=== PATIENT | male | born 1975 | race Caucasian/White ===

== ENCOUNTER 2016-10-26 10:10 | Emergency (ER) | payer BC ==
[~2016-10-26] VITALS: Ht 182.9 cm; Wt 65.0 kg
[2016-10-26 10:19] VITALS: TEMP 37.1; Ht 182.9 cm; Wt 65.0 kg
[2016-10-26] MEDS ORDERED: TRIA1SPR10 NAE (10:58)
[2016-10-26] MEDS ORDERED: PSEU30TA20 PO (10:58)
[2016-10-26] MEDS ORDERED: MAGNTAB PO (10:58)
[2016-10-26] MEDS ORDERED: HYDR-5688 PO (11:58)
[2016-10-26] MEDS ORDERED: META1TAB22 PO (11:58)
[2016-10-26 12:22] VITALS: BP 111/73; PULSE 80; O2SAT 96
--- NOTE | 2016-10-26 21:25 | EMERGENCY ROOM VISIT NOTE ---
History First contact with patient: 11:20 Chief Complaint: BACK PAIN Stated Complaint: LOWER BACK PAIN History of Present Illness The patient is a pleasant 41 year old male who presents to the Emergency Room with complaints of lower back pain. The patient reports that he has had back discomfort for the past 2 days after attempting to open a window. The patient reports that he bent over and used both arms to raise the window when he noticed tightness in the back. The patient reports that the pain is sometimes so bad that he cannot get up from a supine position. The patient reports that this has happened to him before in the past. 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 He also reports that he has had problems with his neck in the past as well, but currently denies any neck discomfort. He has not noticed any pain radiating into the lower extremities or buttocks. He denies bladder/bowel difficulties, saddle anesthesias or lower extremity weakness. He denies any other recent infections , fevers, abdominal pain, urinary symptoms, constipation or diarrhea. His pain is worsened with movement. He currently rates his discomfort a 7 out of 10 on my exam. Review of Systems 10 system review was performed and was negative except for pertinent positives and negatives as indicated in history of present illness Past Medical/Surgical History Medical Problems: (1) No significant past medical history Surgical Problems: (1) No history of previous surgery Family History FH: hypertension FH: kidney disease Social History Smoking Status: Former Smoker Alcohol Use: occasionally Marital Status: Housing Status: lives with family Occupation Status: employed Current/Historical Medications Scheduled Magnesium Salicylate (Backache Relief Extra Str), 2 TAB PO Q4H Metaxalone (Skelaxin), 800 MG PO QID Pseudoephedrine (Sudafed), 30 MG PO HS Triamcinolone Acetonide (Nasal (Nasal Allergy 24 Hour), 1 SPRAY KINA DAILY Scheduled PRN Hydrocodone/Acetaminophen 5MG/325MG ([place] 5MG/325MG), 1-2 TABLET PO Q4H PRN for Pain Allergies Coded Allergies: No Known Allergies (Unverified , 10/26/16) Physical Exam Vital Signs Date Time Temp Pulse Resp B/P (MAP) Pulse Ox O2 Delivery O2 Flow Rate FiO2 10/26/16 12:22 80 15 111/73 96 10/26/16 11:07 75 16 127/78 98 Room Air 10/26/16 10:19 37.1 72 18 120/73 98 Room Air Pain Rating (0-10): 4.0 Physical Exam CONSTITUTIONAL: Healthy and well nourished. Alert and oriented X 3 with positive affect. Patient appears in mild discomfort, and is laying in a supine position. HEENT: Normocephalic, atraumatic. Pupils equal, round and reactive. No subconjunctival hemorrhage or scleral icterus. NECK: Full active range of motion without discomfort. RESPIRATORY: Clear to auscultation bilaterally with no wheezing, crackles, rhonchi or stridor. CARDIOVASCULAR: Regular rate and rhythm with no murmurs, rubs or gallops. GASTROINTESTINAL: Bowel sounds present in all quadrants. Soft and nontender to palpation. MUSCULOSKELETAL: Examination shows mild tenderness to palpation through the lumbar paraspinous muscles and SI joints. Negative logroll bilaterally. Negative straight leg raise. Ankle plantar/dorsiflexion strength is 5 out of 5 and symmetric bilaterally. Pedal pulses are intact. INTEGUMENTARY: No rash or other significant dermatologic conditions noted. NEUROLOGIC: No focal neurologic deficits noted. Lower extremities are sensory intact. Medical Decision & Procedures ED Course Patient history and physical exam were performed. Nurse's notes were reviewed. Vital signs were reviewed and normal. Clinical exam and history are most consistent with a lumbar strain. Was encouraged to intermittently apply heat to his back. Ibuprofen and Tylenol for baseline pain relief. The patient was provided prescriptions for OxyIR 5 mg and Skelaxin. The patient reported that he would like to have a muscle relaxer that does not have a sedating side effect because of his work. He was save the OxyIR at nighttime and as needed for worse pain. He was encouraged to follow-up with his PCP for further reevaluation and management, possibly getting a PT referral. The patient was happy with plan of care, voiced understanding of all discharge instructions, refused any analgesics while in the emergency department, and rated his pain a 7 out of 10 at the time of discharge. Medical Decision Impression Primary Impression: Lumbar strain Departure Information Dispostion Home / Self-Care Condition GOOD Prescriptions Hydrocodone/Acetaminophen 5MG/325MG ([place] 5MG/325MG) Tab 1-2 TABLET PO Q4H Y for Pain, #15 TAB For Initial Treatment Prov: Casey Mackey PA 10/26/16 Metaxalone (Skelaxin) 800 Mg Tab 800 MG PO QID, #28 TAB Prov: Casey Mackey PA 10/26/16 Referrals No Doctor, Assigned Forms HOME CARE DOCUMENTATION FORM, IMPORTANT VISIT INFORMATION Patient Instructions [facility] Additional Instructions Intermittently apply moist heat as needed. Do not sit for long periods of time. Avoid heavy lifting. Use crutches as needed to help you walk. Ibuprofen 800 mg every 6-8 hours. Skelaxin for muscle spasms. Hydrocodone if needed for worse pain. Do not drink alcohol or drive while taking hydrocodone. Follow-up with your family doctor for further management and possibly physical therapy referral. Problem Qualifiers Primary Impression: Lumbar strain Encounter type: initial encounter Qualified Codes: S39.012A - Strain of muscle, fascia and tendon of lower back, initial encounter
== END 2016-10-26 12:20 | disposition home or self-care (01) ==
LOC: C.EDB 10:13 → C.EDC 12:20
DX: S39.012A Strain of muscle, fascia and tendon of lower back, initial encounter (principal); X50.0XXA Overexertion from strenuous movement or load, initial encounter; Z87.891 Personal history of nicotine dependence